=== PATIENT | female | born 1950 | race Caucasian/White ===

== ENCOUNTER 2017-07-14 21:20 | Emergency (ER) | payer MEDICAID, OTHER ==
[2017-07-14 21:29] VITALS: PULSE 79; RESP 16; TEMP 98.3; O2SAT 98; BMI 28.3
[2017-07-14] MEDS ORDERED: TDAP Vaccine 0.5 mL Syr IM ONE (21:41)
[2017-07-14] MEDS ORDERED: Amoxicillin-Clav 875-125 mg Tab PO STA (21:41)
[2017-07-14] MEDS ORDERED: Rabies Immune Globulin 150 INTLU/ML VIAL IM ONE (21:42)
[2017-07-14] MEDS ORDERED: Rabies Vaccine 2.5 U VIAL IM ONE (21:43)
--- NOTE | 2017-07-14 21:46 | ED PDOC ---
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 Patient stated was a stray dog. Patient last tetanus is [facility]N. Patient is concern for rabies infection. Denies other complains or allergies. Time/Duration: Prior to Arrival Context: Street Past Medical History - Provider Review Nursing Documentation Reviewed: Yes - Reproductive Menopause: Yes - Cardiac Hx Cardiac Disorders: Yes Hx Hypertension: Yes Hx Peripheral Vascular Disease: Yes (VARICOSE VEINS/SWELLING ANKLES) - Pulmonary Hx Respiratory Disorders: No - Neurological Hx Neurological Disorder: No - HEENT Hx Cataracts: Yes (LEFT EYE IOL) - Renal Hx Renal Disorder: No - Endocrine/Metabolic Hx Endocrine Disorders: Yes Hx Diabetes Mellitus Type 2: Yes - Hematological/Oncological Hx Blood Disorders: No - Integumentary Hx Dermatological Disorder: No - Musculoskeletal/Rheumatological Hx Musculoskeletal Disorders: Yes Hx Osteoporosis: Yes - Gastrointestinal Hx Gastrointestinal Disorders: No - Genitourinary/Gynecological Hx Genitourinary Disorders: No - Psychiatric Hx Psychophysiologic Disorder: No Hx Substance Use: No - Surgical History Hx Cataract Extraction: Yes (LEFT EYE IOL) Hx Section: Yes (X1) Hx Tubal Ligation: ("WOMB" LIFT) - Anesthesia Hx Anesthesia: Yes Hx Anesthesia Reactions: No Hx Malignant Hyperthermia: No Family/Social History - Physician Review Nursing Documentation Reviewed: Yes Family/Social History: Other (non-contributory) Smoking Status: Never Smoked Hx Alcohol Use: No Hx Substance Use: No Allergies/Home Meds Allergies/Adverse Reactions: Allergies No Known Allergies Allergy (Verified 07/14/17 21:29) Home Medications: Home Meds Medication Instructions Recorded Confirmed Isosorbide Mononitrate 1 tab PO BID 05/20/15 07/14/17 Metformin HCl [Riomet] 5 ml PO BID 05/20/15 07/14/17 Aspirin [Ecotrin] 81 mg PO DAILY 07/14/17 07/14/17 Bisoprolol/HCTZ [Ziac 5 MG-6.25 MG] 1 tab PO DAILY 07/14/17 07/14/17 Calcium Carbonate/Vitamin D3 1 tab PO DAILY 07/14/17 07/14/17 [Calcium 600 + Vit D Tablet] Ergocalciferol (Vitamin D2) 50,000 unit PO DAILY 07/14/17 07/14/17 [Vitamin D2] Losartan Potassium 50 mg PO DAILY 07/14/17 07/14/17 Multivitamin [Multivitamins] 1 cap PO DAILY 07/14/17 07/14/17 Review of Systems - Review of Systems Constitutional: Normal. absent: Fatigue, Weight Change, Fevers Eyes: Normal ENT: Normal Respiratory: Normal Cardiovascular: Normal Gastrointestinal: Normal Genitourinary Female: Normal Musculoskeletal: Normal Skin: Other (dog scratch) Neurological: Normal Endocrine: Normal Hemo/Lymphatic: Normal Psychiatric: Normal Physical Exam Vital Signs Temp Pulse Resp Pulse Ox 07/14/17 21:36 98.3 F 79 16 98 07/14/17 21:28 98.3 F 79 16 98 Temperature: Afebrile Blood Pressure: Normal Pulse: Regular Respiratory Rate: Normal Appearance: Positive for: Well-Appearing, Non-Toxic, Comfortable Pain Distress: None Mental Status: Positive for: Alert and Oriented X 3 - Systems Exam Head: Present: Atraumatic, Normocephalic Pupils: Present: PERRL Extroacular Muscles: Present: EOMI Conjunctiva: Present: Normal Mouth: Present: Moist Mucous Membranes Upper Extremity: Present: Normal ROM, NORMAL PULSES, Neurovascularly Intact, Capillary Refill < 2s, Other ((+) right mid palmar forearm abrasion, approx. 6 mm. It looks like a puncture wound.). No: Cyanosis, Edema Lower Extremity: Present: Normal Inspection, Normal ROM Neurological: Present: GCS=15, CN II-XII Intact, Speech Normal, Motor Func Grossly Intact, Normal Sensory Function, Normal Cerebellar Funct, Gait Normal, Memory Normal Skin: Present: Warm, Dry, Normal Color, Abrasion (see UE). No: Rashes Psychiatric: Present: Alert, Oriented x 3, Normal Insight, Normal Concentration Medical Decision Making ED Course and Treatment: 07/14/17 22:36 Re-evaluation. Patient feels better. Discussed results and plan with patient who expresses understanding. All questions answered and there is agreement with the plan to discharge home with instructions. Patient stable for discharge. Return if symptoms persist or worsen. Patient were recommended to return next Tuesday ( 3 days from now, Then next ( 7 days from now), and in 2 weeks ( 14 days from now) Re-evaluation Time: 22:36 Reassessment Condition: Re-examined, Improved - Medication Orders Current Medication Orders: Discontinued Medications Amoxicillin/Clavulanate Potassium (Augmentin 875 Mg-125 Mg Tab) 1 tab PO STAT STA PRN Reason: Protocol Stop: 07/14/17 21:42 Last Admin: 07/14/17 22:03 Dose: 1 tab Rabies Immune Globulin (Imogam) 1,450 intlu IM .ONCE ONE Stop: 07/14/17 21:43 Last Admin: 07/14/17 22:04 Dose: 1,450 intlu Comments: immune globulin infultrated around wound by SNEG Rabies Vaccine Human Diploid Cell (Imovax Rabies) 2.5 u IM .ONCE ONE Stop: 07/14/17 21:44 Last Admin: 07/14/17 22:10 Dose: 2.5 u Tetanus/Reduced Diphtheria/Acell Pertussis (Boostrix Vaccine Inj) 0.5 ml IM .ONCE ONE Stop: 07/14/17 21:42 Last Admin: 07/14/17 22:03 Dose: 0.5 ml Disposition/Present on Arrival - Present on Arrival Any Indicators Present on Arrival: No History of DVT/PE: No History of Uncontrolled Diabetes: No Urinary Catheter: No History of Decub. Ulcer: No History Surgical Site Infection Following: None - Disposition Have Diagnosis and Disposition been Completed?: Yes Diagnosis: Animal scratch, Need for prophylactic vaccination against rabies Disposition: HOME/ ROUTINE Disposition Time: 22:40 Patient Plan: Discharge Condition: GOOD Discharge Instructions (ExitCare): Animal Bite (ED) Additional Instructions: Call private doctor for wound check in 1-2 days. Clean wound with soap and water daily. Take medication daily as instructed. Return on July 17 for your second shot, then come back to emergency on July 21 for 3rd rabies shot, the return to emergency on July 28 for your last rabies shot. Prescriptions: Amoxicillin/Clavulanate [Augmentin 875 MG-125 MG] 1 tab PO BID #20 tab Referrals: Fabio Adorno MD [Primary Care Provider] - Follow up with primary Forms: [employer] (Grenadian)
== END 2017-07-14 23:02 | disposition home or self-care (01) ==
LOC: ED 21:20
DX: S50.811A Abrasion of right forearm, initial encounter (principal); W54.1XXA Struck by dog, initial encounter; Y93.89 Activity, other specified; Y92.89 Other specified places as the place of occurrence of the external cause; Z23 Encounter for immunization

== ENCOUNTER 2017-07-17 19:49 | Emergency (ER) | payer MEDICAID ==
[2017-07-17 19:50] VITALS: BMI 28.3
[2017-07-17 20:05] VITALS: BP 127/79; PULSE 68; RESP 18; TEMP 98.9; O2SAT 97
[2017-07-17] MEDS ORDERED: Rabies Vaccine 2.5 U VIAL IM ONE (20:15)
--- NOTE | 2017-07-17 20:18 | ED PDOC ---
Arrival/HPI - General Chief Complaint: Abnormal Skin Integrity Time Seen by Provider: 07/17/17 20:14 Historian: Patient - History of Present Illness Narrative History of Present Illness (Text): 07/17/17 20:15 66 y/o female, here for the 2nd rabies vaccination. Pt. stated that she is due for her second rabies vaccination. Pt. has no numbness or tingling, no fever or night sweat, no rash, no numbness or tingling, no palpitation, no other medical or psychological complaints. Past Medical History - Provider Review Nursing Documentation Reviewed: Yes - Infectious Disease Hx of Infectious Diseases: None - Reproductive Menopause: Yes - Cardiac Hx Cardiac Disorders: Yes Hx Hypertension: Yes Hx Peripheral Vascular Disease: Yes (VARICOSE VEINS/SWELLING ANKLES) - Pulmonary Hx Respiratory Disorders: No - Neurological Hx Neurological Disorder: No - HEENT Hx Cataracts: Yes (LEFT EYE IOL) - Renal Hx Renal Disorder: No - Endocrine/Metabolic Hx Endocrine Disorders: Yes Hx Diabetes Mellitus Type 2: Yes - Hematological/Oncological Hx Blood Disorders: No - Integumentary Hx Dermatological Disorder: No - Musculoskeletal/Rheumatological Hx Musculoskeletal Disorders: Yes Hx Osteoporosis: Yes - Gastrointestinal Hx Gastrointestinal Disorders: No - Genitourinary/Gynecological Hx Genitourinary Disorders: No - Psychiatric Hx Psychophysiologic Disorder: No Hx Substance Use: No - Surgical History Hx Cataract Extraction: Yes (LEFT EYE IOL) Hx Section: Yes (X1) Hx Tubal Ligation: ("WOMB" LIFT) - Anesthesia Hx Anesthesia: Yes Hx Anesthesia Reactions: No Hx Malignant Hyperthermia: No Family/Social History - Physician Review Nursing Documentation Reviewed: Yes Family/Social History: Unknown Family HX Smoking Status: Never Smoked Hx Alcohol Use: No Hx Substance Use: No Allergies/Home Meds Allergies/Adverse Reactions: Allergies No Known Allergies Allergy (Verified 07/14/17 21:29) Home Medications: Home Meds Medication Instructions Recorded Confirmed Isosorbide Mononitrate 1 tab PO BID 05/20/15 07/14/17 Metformin HCl [Riomet] 5 ml PO BID 05/20/15 07/14/17 Aspirin [Ecotrin] 81 mg PO DAILY 07/14/17 07/14/17 Bisoprolol/HCTZ [Ziac 5 MG-6.25 MG] 1 tab PO DAILY 07/14/17 07/14/17 Calcium Carbonate/Vitamin D3 1 tab PO DAILY 07/14/17 07/14/17 [Calcium 600 + Vit D Tablet] Ergocalciferol (Vitamin D2) 50,000 unit PO DAILY 07/14/17 07/14/17 [Vitamin D2] Losartan Potassium 50 mg PO DAILY 07/14/17 07/14/17 Multivitamin [Multivitamins] 1 cap PO DAILY 07/14/17 07/14/17 Review of Systems - Review of Systems Constitutional: absent: Fatigue, Fevers Eyes: absent: Vision Changes ENT: absent: Hearing Changes Respiratory: absent: SOB, Cough Cardiovascular: absent: Chest Pain Gastrointestinal: absent: Abdominal Pain, Nausea, Vomiting Skin: absent: Rash, Pruritis, Skin Lesions Neurological: absent: Headache, Dizziness Physical Exam Vital Signs Reviewed: Yes Vital Signs Temp Pulse Resp BP Pulse Ox 07/17/17 20:00 98.9 F 68 18 127/79 97 Temperature: Afebrile Blood Pressure: Normal Pulse: Regular Respiratory Rate: Normal Appearance: Positive for: Well-Appearing, Non-Toxic, Comfortable Pain Distress: None Mental Status: Positive for: Alert and Oriented X 3 - Systems Exam Head: Present: Atraumatic, Normocephalic Pupils: Present: PERRL Extroacular Muscles: Present: EOMI Conjunctiva: Present: Normal Mouth: Present: Moist Mucous Membranes Neck: Present: Normal Range of Motion Respiratory/Chest: Present: Clear to Auscultation, Good Air Exchange. No: Respiratory Distress, Accessory Muscle Use Cardiovascular: Present: Regular Rate and Rhythm, Normal S1, S2. No: Murmurs Abdomen: Present: Normal Bowel Sounds. No: Tenderness, Distention, Peritoneal Signs Back: Present: Normal Inspection Upper Extremity: Present: Normal Inspection. No: Cyanosis, Edema Lower Extremity: Present: Normal Inspection. No: Edema Neurological: Present: GCS=15, Speech Normal, Motor Func Grossly Intact, Gait Normal, Memory Normal Skin: Present: Warm, Dry, Rashes (visible scratch wound with no cellulitis or streaking, no ulcers. ), Normal Color Psychiatric: Present: Alert, Oriented x 3, Normal Insight, Normal Concentration Medical Decision Making ED Course and Treatment: 07/17/17 20:39 -rabies vaccine ordered -Discharge home with education on continue the rabies scheduled, return to the ER for any new or worsening signs or symptoms. 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 Disposition/Present on Arrival - Present on Arrival Any Indicators Present on Arrival: No History of DVT/PE: No History of Uncontrolled Diabetes: No Urinary Catheter: No History of Decub. Ulcer: No History Surgical Site Infection Following: None - Disposition Have Diagnosis and Disposition been Completed?: Yes Diagnosis: Rabies, need for prophylactic vaccination against Disposition: HOME/ ROUTINE Disposition Time: 20:18 Patient Plan: Discharge Condition: GOOD Additional Instructions: -I spoke to Dr. Adorno, discussed about the labs/radiology results, agreed that the patient needs to be admitted, suggest to admit to his service as he is not under the blue list. Forms: [employer] (Turkish), WORK NOTE
[2017-07-17] MEDS ORDERED: RABIES VACCINE 2.5 U PDR IM ONE (20:30)
== END 2017-07-17 21:42 | disposition home or self-care (01) ==
LOC: ED 19:49
DX: Z23 Encounter for immunization (principal)

== ENCOUNTER 2017-07-21 19:31 | Emergency (ER) | payer MEDICAID ==
[2017-07-21 19:32] VITALS: BMI 28.3
[2017-07-21 19:47] VITALS: BP 104/69; PULSE 63; RESP 16; TEMP 97.7; O2SAT 97
[2017-07-21] MEDS ORDERED: Rabies Vaccine 2.5 U VIAL IM ONE (19:54)
[2017-07-21] MEDS ORDERED: RABIES VACCINE 2.5 U PDR IM ONE (20:00)
--- NOTE | 2017-07-21 20:17 | ED PDOC ---
Arrival/HPI - General Chief Complaint: Rabies Vaccine Series Time Seen by Provider: 07/21/17 19:41 Historian: Patient - History of Present Illness Narrative History of Present Illness (Text): 07/21/17 20:18 66 y/o female, here for the 3rd rabies vaccination, due to a dog scratch to the R forearm, which has been healing well. Pt has no numbness or tingling, no fever or night sweat, no rash, no numbness or tingling, has no other complaints. PMD [place] Past Medical History - Provider Review Nursing Documentation Reviewed: Yes - Infectious Disease Hx of Infectious Diseases: None - Cardiac Hx Cardiac Disorders: Yes Hx Hypertension: Yes Hx Peripheral Vascular Disease: Yes (VARICOSE VEINS/SWELLING ANKLES) - Pulmonary Hx Respiratory Disorders: No - Neurological Hx Neurological Disorder: No - HEENT Hx Cataracts: Yes (LEFT EYE IOL) - Renal Hx Renal Disorder: No - Endocrine/Metabolic Hx Endocrine Disorders: Yes Hx Diabetes Mellitus Type 2: Yes - Hematological/Oncological Hx Blood Disorders: No - Integumentary Hx Dermatological Disorder: No - Musculoskeletal/Rheumatological Hx Musculoskeletal Disorders: Yes Hx Osteoporosis: Yes - Gastrointestinal Hx Gastrointestinal Disorders: No - Genitourinary/Gynecological Hx Genitourinary Disorders: No - Psychiatric Hx Psychophysiologic Disorder: No Hx Substance Use: No - Surgical History Hx Cataract Extraction: Yes (LEFT EYE IOL) Hx Section: Yes (X1) Hx Tubal Ligation: ("WOMB" LIFT) - Anesthesia Hx Anesthesia: Yes Family/Social History - Physician Review Nursing Documentation Reviewed: Yes Family/Social History: No Known Family HX Smoking Status: Never Smoked Hx Alcohol Use: No Hx Substance Use: No Allergies/Home Meds Allergies/Adverse Reactions: Allergies No Known Allergies Allergy (Verified 07/21/17 19:38) Home Medications: Home Meds Medication Instructions Recorded Confirmed Isosorbide Mononitrate 1 tab PO BID 05/20/15 07/21/17 Metformin HCl [Riomet] 5 ml PO BID 05/20/15 07/21/17 Aspirin [Ecotrin] 81 mg PO DAILY 07/14/17 07/21/17 Bisoprolol/HCTZ [Ziac 5 MG-6.25 MG] 1 tab PO DAILY 07/14/17 07/21/17 Calcium Carbonate/Vitamin D3 1 tab PO DAILY 07/14/17 07/21/17 [Calcium 600 + Vit D Tablet] Ergocalciferol (Vitamin D2) 50,000 unit PO DAILY 07/14/17 07/21/17 [Vitamin D2] Losartan Potassium 50 mg PO DAILY 07/14/17 07/21/17 Multivitamin [Multivitamins] 1 cap PO DAILY 07/14/17 07/21/17 Review of Systems - Review of Systems Constitutional: Normal. absent: Fatigue, Weight Change, Fevers Musculoskeletal: Normal. absent: Arthralgias, Back Pain, Neck Pain Skin: Normal, Other (dog scratch). absent: Rash, Pruritis, Skin Lesions Physical Exam Vital Signs Reviewed: Yes Vital Signs Temp Pulse Resp BP Pulse Ox 07/21/17 19:44 97.7 F 63 16 104/69 97 Temperature: Afebrile Blood Pressure: Normal Pulse: Regular Respiratory Rate: Normal Appearance: Positive for: Well-Appearing, Non-Toxic, Comfortable Pain Distress: None Mental Status: Positive for: Alert and Oriented X 3 - Systems Exam Upper Extremity: Present: Normal Inspection, Normal ROM, NORMAL PULSES, Neurovascularly Intact, Capillary Refill < 2s, Norm 2-Pt Discrimination. No: Edema, Tenderness, Swelling, Erythema, Temperature Abnormalties, Deformity Skin: Present: Warm, Dry, Normal Color, Abrasion (healing abrasion to the R forearm). No: Rashes Medical Decision Making ED Course and Treatment: 07/21/17 20:21 66 y/o female, here for the 3rd rabies vaccination. Patient given 3rd rabies vaccination. Advised to return to the ER on 07/28/17 for her last vaccine. 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 Disposition/Present on Arrival - Present on Arrival Any Indicators Present on Arrival: No History of DVT/PE: No History of Uncontrolled Diabetes: No Urinary Catheter: No History of Decub. Ulcer: No History Surgical Site Infection Following: None - Disposition Have Diagnosis and Disposition been Completed?: Yes Diagnosis: Need for rabies vaccination Disposition: HOME/ ROUTINE Disposition Time: 20:00 Patient Plan: Discharge Patient Problems: Current Active Problems Problem Status Onset Need for rabies vaccination Acute Condition: STABLE Discharge Instructions (ExitCare): Rabies Vaccine (By injection) Print Language: KINYARWANDA Additional Instructions: Return to emergency on July 28 for your last rabies shot. Referrals: Fabio Adorno MD [Primary Care Provider] - Follow up with primary Forms: [employer] (Cypriot)
== END 2017-07-21 20:26 | disposition home or self-care (01) ==
LOC: ED 19:31
DX: Z23 Encounter for immunization (principal)

== ENCOUNTER 2017-07-28 19:45 | Emergency (ER) | payer MEDICAID ==
[2017-07-28 19:45] VITALS: BMI 28.3
[2017-07-28] MEDS ORDERED: Rabies Vaccine 2.5 U VIAL IM ONE (19:51)
--- NOTE | 2017-07-28 19:54 | ED PDOC ---
Arrival/HPI - General Time Seen by Provider: 07/28/17 19:46 Historian: Patient - History of Present Illness Narrative History of Present Illness (Text): 07/28/17 19:52 66 yo male come in for final 4th rabies vaccination after possible exposure on . Pt denies any physical complaints at present time, denies fever, chills , headache, dizziness, CP, SOB, dyspnea, diaphoresis, abd. pain, N/V/D, denies increase wound pain, redness or draining. Ambulate to Ed for evaluation, not in any apparent distress. Past Medical History - Provider Review Nursing Documentation Reviewed: Yes - Travel History Have you recently traveled outside [place] w/in the past 3 mons?: No - Infectious Disease Hx of Infectious Diseases: None - Cardiac Hx Cardiac Disorders: Yes Hx Hypertension: Yes Hx Peripheral Vascular Disease: Yes (VARICOSE VEINS/SWELLING ANKLES) - Pulmonary Hx Respiratory Disorders: No - Neurological Hx Neurological Disorder: No - HEENT Hx Cataracts: Yes (LEFT EYE IOL) - Renal Hx Renal Disorder: No - Endocrine/Metabolic Hx Endocrine Disorders: Yes Hx Diabetes Mellitus Type 2: Yes - Hematological/Oncological Hx Blood Disorders: No - Integumentary Hx Dermatological Disorder: No - Musculoskeletal/Rheumatological Hx Musculoskeletal Disorders: Yes Hx Osteoporosis: Yes - Gastrointestinal Hx Gastrointestinal Disorders: No - Genitourinary/Gynecological Hx Genitourinary Disorders: No - Psychiatric Hx Psychophysiologic Disorder: No Hx Substance Use: No - Surgical History Hx Cataract Extraction: Yes (LEFT EYE IOL) Hx Section: Yes (X1) Hx Tubal Ligation: ("WOMB" LIFT) - Anesthesia Hx Anesthesia: Yes Family/Social History - Physician Review Nursing Documentation Reviewed: Yes Family/Social History: No Known Family HX Smoking Status: Never Smoked Hx Alcohol Use: No Hx Substance Use: No Allergies/Home Meds Allergies/Adverse Reactions: Allergies No Known Allergies Allergy (Verified 07/21/17 19:38) Home Medications: Home Meds Medication Instructions Recorded Confirmed Isosorbide Mononitrate 1 tab PO BID 05/20/15 07/28/17 Metformin HCl [Riomet] 5 ml PO BID 05/20/15 07/28/17 Aspirin [Ecotrin] 81 mg PO DAILY 07/14/17 07/28/17 Bisoprolol/HCTZ [Ziac 5 MG-6.25 MG] 1 tab PO DAILY 07/14/17 07/28/17 Calcium Carbonate/Vitamin D3 1 tab PO DAILY 07/14/17 07/28/17 [Calcium 600 + Vit D Tablet] Ergocalciferol (Vitamin D2) 50,000 unit PO DAILY 07/14/17 07/28/17 [Vitamin D2] Losartan Potassium 50 mg PO DAILY 07/14/17 07/28/17 Multivitamin [Multivitamins] 1 cap PO DAILY 07/14/17 07/28/17 Review of Systems - Physician Review All systems were reviewed & negative as marked: Yes - Review of Systems Constitutional: Normal Eyes: Normal ENT: Normal Respiratory: Normal Cardiovascular: Normal Gastrointestinal: Normal Genitourinary Female: Normal Musculoskeletal: Normal Skin: Normal Neurological: Normal Endocrine: Normal Hemo/Lymphatic: Normal Psychiatric: Normal Physical Exam Vital Signs Reviewed: Yes Vital Signs Temp Pulse Resp BP Pulse Ox 07/28/17 19:56 98.2 F 62 18 130/76 98 Temperature: Afebrile Blood Pressure: Normal Pulse: Regular Respiratory Rate: Normal Appearance: Positive for: Well-Appearing, Non-Toxic, Comfortable Pain Distress: None Mental Status: Positive for: Alert and Oriented X 3 - Systems Exam Conjunctiva: Present: Normal Mouth: Present: Moist Mucous Membranes. No: Drooling Neck: Present: Trachea Midline Respiratory/Chest: Present: Good Air Exchange. No: Clear to Auscultation, Respiratory Distress, Decreased Breath Sounds Cardiovascular: Present: Regular Rate and Rhythm, Normal S1, S2 Abdomen: Present: Normal Bowel Sounds. No: Tenderness, Distention, Peritoneal Signs Upper Extremity: Present: Normal ROM. No: Deformity Lower Extremity: Present: Normal ROM. No: Edema, CALF TENDERNESS, Deformity Neurological: Present: GCS=15, Speech Normal, Normal Sensory Function, Normal Cerebellar Funct, Norm Deep Tendon Reflexes, Gait Normal Skin: Present: Warm, Dry, Normal Color, Abrasion (well healed linear scratches/ abrasion to volar aspect Right forearm. No cellulitis, no wound draining.). No : Rashes Psychiatric: Present: Alert, Oriented x 3 Medical Decision Making ED Course and Treatment: 07/28/17 On re-eval, pt qamar febrile, hemodynamicaly stable. Non-toxic. Asymptomatic. Pt received last rabies vaccination today. Pt advised and ref. to f/u with PMD as need for further eval/tx. - Medication Orders Current Medication Orders: Discontinued Medications Rabies Vaccine Human Diploid Cell (Imovax Rabies) 2.5 u IM .ONCE ONE Stop: 07/28/17 19:52 Last Admin: 07/28/17 20:17 Dose: 2.5 u Disposition/Present on Arrival - Present on Arrival Any Indicators Present on Arrival: No History of DVT/PE: No History of Uncontrolled Diabetes: No Urinary Catheter: No History Surgical Site Infection Following: None - Disposition Have Diagnosis and Disposition been Completed?: Yes Diagnosis: Need for rabies vaccination Disposition: HOME/ ROUTINE Disposition Time: 19:57 Patient Plan: Discharge Patient Problems: Current Active Problems Problem Status Onset Need for rabies vaccination Acute Condition: STABLE Discharge Instructions (ExitCare): Rabies Vaccine (ED) Additional Instructions: Follow up with PMD as need for further evaluation and treatment. Referrals: [facility] [Outside] - Follow up with primary
[2017-07-28 19:56] VITALS: BP 130/76; PULSE 62; RESP 18; TEMP 98.2; O2SAT 98
== END 2017-07-28 20:24 | disposition home or self-care (01) ==
LOC: ED 19:45
DX: Z23 Encounter for immunization (principal)

== ENCOUNTER 2019-03-23 09:30 | Outpatient (CLI) | payer MEDICARE, MEDICAID | END 2019-03-23 09:31 | disposition home or self-care (01) | LOC: RAD 09:30 | DX: Z13.820 Encounter for screening for osteoporosis (principal) ==